=== PATIENT | female | born 1985 | race Caucasian/White ===

== ENCOUNTER 2018-11-11 20:24 | Emergency (ER) | payer OTHER, MEDICAID ==
[~2018-11-11] VITALS: Ht 165.1 cm; Wt 68.0 kg
[~2018-11-11 20:24] MED LIST: AZITHROMYCIN 2250 MG PO; HYDROCODON-ACE1 EACH PO; HYDROCORTISONE3011 TP; HYDROXYZINE HCL25 M1 PO; IBUPROFEN 200200 M1 PO; MULTIVITAMIN PO; MULTIVITAMINS; PHENERGAN 25 MG25 MG PO; PROAIR HFA8.5 GM IH; TRIPLE ANTIBIOT30 G2 TP; ZANTAC 7575 MG PO
[2018-11-11 21:27] LABS: ABSOLUTE BASOPHILS 0.1 thou/uL (0.0-0.2); ABSOLUTE LYMPHOCYTES 1.9 thou/uL (0.8-5.3); ABSOLUTE MONOCYTES 0.8 thou/uL (0.0-1.2); ABSOLUTE NEUTROPHILS 9.6 thou/uL (1.6-8.1); BASOPHILS 0.5 %; EOSINOPHILS 0.2 %; HEMATOCRIT 41.3 % (37.0-47.0); HEMOGLOBIN 14.3 gm/dL (12.0-15.0); LYMPHOCYTES 15.2 %; MCH 32.8 pg (26.0-34.0); MCHC 34.7 g/dL (28.0-37.0); MCV 94.6 fL (80.0-100.0); MONOCYTES 6.3 %; MPV 7.5 fl. (7.2-11.1); NUCLEATED RBCS 0 /100WBC; PLATELET COUNT* 321 thou/uL (150-400); POLYS 77.8 %; RBC 4.36 mil/uL (4.20-5.00); RDW-CV 11.8 % (10.5-14.5); WBC 12.3 thou/uL (4.0-11.0)
[2018-11-11 21:34] LABS: URINE BILIRUBIN NEGATIVE (Negative); URINE BLOOD 1+ (Negative); URINE CLARITY CLEAR; URINE COLOR YELLOW; URINE GLUCOSE-RANDOM NEGATIVE (Negative); URINE KETONES TRACE (Negative); URINE LEUKOCYTES-REFLEX 1+ (Negative); URINE NITRITE-REFLEX NEGATIVE (Negative); URINE PROTEIN NEGATIVE (Negative); URINE SPECIFIC GRAVITY <= 1.005 (1.005-1.030); URINE UROBILINOGEN 0.2 E.U./dl (0.2-1.0)
[2018-11-11 21:39] LABS: CALCIUM 9.8 mg/dL (8.5-10.1); CREATININE 0.7 mg/dL (0.6-1.3); POTASSIUM 3.4 mmol/L (3.5-5.1)
[2018-11-11 21:47] LABS: ALBUMIN 4.3 g/dL (3.4-5.0); TOTAL BILIRUBIN 0.5 mg/dL (<0.1-1.0); TOTAL PROTEIN 8.3 g/dL (6.4-8.2)
[2018-11-11 21:50] LABS: CASTS None Seen /LPF (None Seen); SQUAMOUS >10 Many /LPF (0-3); URINE WBC-REFLEX 6-15 Few /HPF (0-5)
[2018-11-11 21:51] LABS: CRYSTALS None Seen /LPF (None Seen); URINE RBC 3-10 Few /HPF (0-2)
[2018-11-11] MEDS ORDERED: ZOFRAN ODT4 MG SUBLING (22:24)
[2018-11-11] MEDS ORDERED: CIPROFLOXACIN500 M1 PO (22:24)
[2018-11-11 22:57] VITALS: BP 112/52
[2018-11-11 22:57] LABS: MUCUS None Seen strn/LPF (None Seen)
== END 2018-11-11 22:57 | disposition home or self-care (01) ==
LOC: M.ERS 20:24
PROVIDERS: Family Medicine
DX: R11.2 Nausea with vomiting, unspecified (principal); N39.0 Urinary tract infection, site not specified; F17.210 Nicotine dependence, cigarettes, uncomplicated; Z98.890 Other specified postprocedural states

== ENCOUNTER 2018-11-14 19:22 | Emergency (ER) | payer OTHER, MEDICAID ==
[~2018-11-14] VITALS: Ht 165.1 cm; Wt 68.0 kg
[~2018-11-14 19:22] MED LIST changes: +CIPROFLOXACIN500 M1 PO; +ZOFRAN ODT4 MG SUBLING
[2018-11-14 19:42] LABS: ABSOLUTE BASOPHILS 0.1 thou/uL (0.0-0.2); ABSOLUTE LYMPHOCYTES 1.8 thou/uL (0.8-5.3); ABSOLUTE MONOCYTES 0.9 thou/uL (0.0-1.2); BASOPHILS 0.6 %; EOSINOPHILS 0.2 %; HEMATOCRIT 38.4 % (37.0-47.0); HEMOGLOBIN 13.1 gm/dL (12.0-15.0); LYMPHOCYTES 15.3 %; MCH 32.4 pg (26.0-34.0); MCHC 34.1 g/dL (28.0-37.0); MCV 94.8 fL (80.0-100.0); MPV 7.5 fl. (7.2-11.1); NUCLEATED RBCS 0 /100WBC; PLATELET COUNT* 297 thou/uL (150-400); POLYS 75.9 %; RBC 4.05 mil/uL (4.20-5.00); RDW-CV 11.9 % (10.5-14.5); WBC 11.8 thou/uL (4.0-11.0)
[2018-11-14 19:47] LABS: URINE BILIRUBIN NEGATIVE (Negative); URINE BLOOD 1+ (Negative); URINE CLARITY CLEAR; URINE COLOR YELLOW; URINE GLUCOSE-RANDOM NEGATIVE (Negative); URINE KETONES NEGATIVE (Negative); URINE LEUKOCYTES-REFLEX TRACE (Negative); URINE NITRITE-REFLEX NEGATIVE (Negative); URINE PROTEIN NEGATIVE (Negative); URINE UROBILINOGEN 0.2 E.U./dl (0.2-1.0)
[2018-11-14 19:49] LABS: INR 1.1; PROTIME 11.1 Seconds (9.20-11.50)
[2018-11-14 19:50] LABS: ANION GAP 9 mmol/L (7-16); BUN 4 mg/dL (7-18); CALCIUM 9.2 mg/dL (8.5-10.1); CHLORIDE 106 mmol/L (98-107); CO2 25 mmol/L (21-32); CREATININE 0.8 mg/dL (0.6-1.3); GLUCOSE 115 mg/dL (70-99); POTASSIUM 3.3 mmol/L (3.5-5.1); SODIUM 140 mmol/L (136-145)
[2018-11-14 19:55] LABS: AMP/METHAMP Negative (Negative); BARBITURATES Negative (Negative); BENZODIAZEPINES Negative (Negative); COCAINE Negative (Negative); METHADONE Negative (Negative); OPIATES Negative (Negative); PCP Negative (Negative); THC POSITIVE (Negative)
[2018-11-14 19:55] LABS: CASTS None Seen /LPF (None Seen); MUCUS None Seen strn/LPF (None Seen); SQUAMOUS 4-10 Moderate /LPF (0-3)
[2018-11-14 19:56] LABS: BACTERIA-REFLEX 1-9 Few /HPF (None Seen); CRYSTALS None Seen /LPF (None Seen); URINE RBC 0-2 Rare /HPF (0-2); URINE WBC-REFLEX 0-5 Rare /HPF (0-5)
[2018-11-14 20:00] LABS: ALBUMIN 3.8 g/dL (3.4-5.0); ALKALINE PHOSPHATASE 56 U/L (46-116); LIPASE 122 U/L (73-393); NT-PRO BRAIN NAT PEPTIDE 68 pg/mL (<300); SGOT 25 U/L (15-37); SGPT 21 U/L (30-65); TOTAL BILIRUBIN 0.3 mg/dL (<0.1-1.0); TOTAL PROTEIN 7.3 g/dL (6.4-8.2); TROPONIN-I LEVEL <0.06 ng/mL (<0.06)
[2018-11-14] MEDS ORDERED: CARAFATE 1 GM TA1 GM PO (21:03)
[2018-11-14] MEDS ORDERED: HYDROXYZINE HCL25 M1 PO (21:03)
[2018-11-14 21:50] VITALS: BP 106/67
--- NOTE | 2018-11-15 10:51 | EKG ---
[place] [address] ELECTROCARDIOGRAM REPORT Name: FAMILIA ROPER Room: [facility]#: [id number] Admission: 11/14/18 Attend Phys: Discharge: 11/14/18 Date of : 87 Report #: [id number] THIS REPORT FOR: //name// [facility] ED Test Date: 2018-11-14 Test Time: 19:28:52 Pat Name: FAMILIA ORPER Department: Room: Gender: F Warp Dyeing Vat Tender: SERGIO : 1985 Requested By: Lara Yang Order Number: [id number] MD: Teto Mariano Measurements Intervals [place] Rate: 73 P: 54 [place]: 124 QRS: 72 QRSD: 87 T: -18 QT: 366 QTc: 404 Interpretive Statements Sinus rhythm Borderline repolarization abnormality No previous ECG available for comparison Electronically Signed On 11-15-2018 10:51:12 [employer] ARCHITECT by Teto Mariano [email or web address] <ELECTRONICALLY SIGNED> By: Teto Mariano MD, [facility] 11/15/18 1051 1928 192 Teto Mariano MD, FACC /EPI
== END 2018-11-14 21:50 | disposition home or self-care (01) ==
LOC: M.ERS 19:22
PROVIDERS: Emergency Medicine
DX: F41.9 Anxiety disorder, unspecified (principal); R12 Heartburn; F17.210 Nicotine dependence, cigarettes, uncomplicated; Z90.89 Acquired absence of other organs; Z98.890 Other specified postprocedural states